=== PATIENT | female | born 1990 | race Two or more races ===

== ENCOUNTER 2019-03-13 00:57 | Emergency (ER) | payer MEDICAID ==
[~2019-03-13] VITALS: Ht 160 cm; Wt 66.2 kg
[2019-03-13 01:04] VITALS: BP 112/85
== END 2019-03-13 01:09 | disposition left against medical advice (07) ==
LOC: ER 01:01
DX: R07.9 Chest pain, unspecified (principal); Z53.21 Procedure and treatment not carried out due to patient leaving prior to being seen by health care provider
CPT/HCPCS: 93005

== ENCOUNTER 2019-05-24 17:19 | Emergency (ER) | payer MEDICAID ==
[~2019-05-24] VITALS: Ht 160 cm; Wt 66.7 kg
[2019-05-24 18:33] VITALS: BP 146/93
[2019-05-24] MEDS ORDERED: ACETAMINOPHEN 500 MG TAB PO ONE (18:45)
[2019-05-24 19:47] LABS: Urine Bacteria NONE SEEN /hpf (None Seen); Urine Blood Negative /uL (Negative); Urine Specific Gravity 1.005 (1.001-1.035); Urine WBC 1 /hpf (0 - 5)
== END 2019-05-24 20:55 | disposition home or self-care (01) ==
LOC: ER 17:19
DX: J18.1 Lobar pneumonia, unspecified organism (principal); R51 Headache
CPT/HCPCS: 71046; 81001; 81025; 87804